=== PATIENT | male | born 1965 | race Caucasian/White ===

== ENCOUNTER 2016-09-12 20:30 | Emergency (ER) | payer OTHER ==
[~2016-09-12] VITALS: Ht 170.2 cm; Wt 80.0 kg
[2016-09-12 20:43] VITALS: BP 144/76; PULSE 95; RESP 15; TEMP 98.9; O2SAT 97
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
[2016-09-12] MEDS ORDERED: AUGM875T3 PO (22:13)
[2016-09-13 03:00] VITALS: BP_SYST 127; BP_SYST 134; BP_DIAS 69; PULSE 89; RESP 16; O2SAT 97
[2016-09-13 06:30] VITALS: BP 127/71; PULSE 84; RESP 16; O2SAT 98
== END 2016-09-13 06:35 | disposition home or self-care (01) ==
LOC: NEPC 20:30
DX: S01.111A Laceration without foreign body of right eyelid and periocular area, initial encounter (principal); J01.00 Acute maxillary sinusitis, unspecified; S00.81XA Abrasion of other part of head, initial encounter; F10.920 Alcohol use, unspecified with intoxication, uncomplicated; W19.XXXA Unspecified fall, initial encounter; Y93.9 Activity, unspecified; Y92.9 Unspecified place or not applicable; Y99.8 Other external cause status
CPT/HCPCS: 70450; 70486; 72125; 99285